=== PATIENT | male | born 1965 | race Caucasian/White ===

== ENCOUNTER 2018-12-21 10:09 | Inpatient (IN) | payer OTHER ==
--- NOTE | 2018-12-21 10:38 | PDOC ---
History of Present Illness - General Chief Complaint: Pain Stated Complaint: ABD PAIN Time Seen by Provider: 12/21/18 10:38 - History of Present Illness Initial Comments: 53 year old male with PMH of klinefelter syndrome, gastric sleeve (5.5 years prior), anemia and DVT ( 9 years prior never on AC ), who presents with left flank pain for the past two weeks. He was seen at [facility] ED one week prior where they discoverd a large 7mm left sided neprolith with moderate hydronpehrosis. Labs were normal and the patient was admitted for a day then discharged. Repeat CT results were pending. Patient returned today because the pain worsened yesterday and he felt as if it was more difficult to urinate. Does have nausea and vomiting. Denies fevers, chills, headache, chest pain, SOB , or other symptoms. 12/21/18 10:39 Past History - Past Medical History Allergies/Adverse Reactions: Allergies Allergy/AdvReac Type Severity Reaction Status Date / Time latex Allergy Rash Verified 04/28/15 10:32 aspirin AdvReac Verified 06/09/18 10:46 codeine AdvReac Vomiting Verified 06/09/18 10:46 naproxen AdvReac Vomiting Verified 12/21/18 10:31 oxycodone AdvReac Vomiting Verified 12/21/18 10:31 Home Medications: Ambulatory Orders Gabapentin 300 mg PO TID 06/09/18 Anemia: Yes Asthma: No Cancer: No Cardiac Disorders: No CVA: No COPD: No CHF: No DVT: Yes Dementia: No Diabetes: No GI Disorders: No Disorders: No HTN: No Hypercholesterolemia: No Liver Disease: No Seizures: No Thyroid Disease: No - Surgical History Abdominal Surgery: Yes (gastric bypass 04/26/14) Appendectomy: No Cardiac Surgery: No Cholecystectomy: No Lung Surgery: No Neurologic Surgery: No Orthopedic Surgery: Yes (neck sx, knee sx) - Suicide/Smoking/Psychosocial Hx Smoking History: Never smoked Have you smoked in the past 12 months: No Number of Cigarettes Smoked Daily: 0 Information on smoking cessation initiated: No Hx Alcohol Use: No Drug/Substance Use Hx: No Review of Systems - Review of Systems Constitutional: No: Chills, Diaphoresis, Fever, Loss of Appetite HEENTM: No: Tearing, Nose Pain Respiratory: No: Cough, Shortness of Breath Cardiac (ROS): No: Chest Pain, Edema, Irregular Heart Rate ABD/GI: Yes: Nausea, Vomiting. No: Diarrhea : Yes: Dysuria, Flank Pain, Pain, Urgency. No: Frequency, Hematuria Musculoskeletal: No: Joint Pain Neurological: No: Headache, Numbness, Paresthesia Psychiatric: No: Anxiety, Depression Hematologic/Lymphatic: Yes: Blood Clots. No: Anemia, Easy Bleeding *Physical Exam - Vital Signs Last Vital Signs Temp Pulse Resp BP Pulse Ox 98.2 F 47 L 16 161/80 100 12/21/18 10:22 12/21/18 10:22 12/21/18 10:22 12/21/18 10:22 12/21/18 10:22 - Physical Exam General Appearance: Yes: Nourished, Appropriately Dressed. No: Apparent Distress HEENT: positive: EOMI, RISSA, Normal ENT Inspection, Normal Voice Neck: positive: Trachea midline, Normal Thyroid, Supple. negative: Tender, Rigid Respiratory/Chest: positive: Lungs Clear, Normal Breath Sounds. negative: Chest Tender, Respiratory Distress Cardiovascular: positive: Regular Rhythm, Regular Rate Gastrointestinal/Abdominal: positive: Normal Bowel Sounds, Tender (f), Flat Lymphatic: negative: Adenopathy, Tenderness Musculoskeletal: positive: Normal Inspection. negative: CVA Tenderness Extremity: positive: Normal Capillary Refill, Normal Inspection, Normal Range of Motion. negative: Tender Integumentary: positive: Normal Color, Dry, Warm Neurologic: positive: Fully Oriented, Alert, Normal Mood/Affect, Normal Response , Motor Strength 5/5 ED Treatment Course - LABORATORY CBC & Chemistry Diagram: 12/21/18 11:15 12/21/18 11:15 Medical Decision Making - Medical Decision Making 53 year old male with known left [place] obstrucitng nephrolith with repeat CT scan demonstrating 7 mm stone ad left UVJ. Labs WNL and UA demosntrating hematuria. Spoke to Yumiko and will admit to Dr. briones's service. 12/21/18 16:14 *DC/Admit/Observation/Transfer Diagnosis at time of Disposition: Nephrolith - Discharge Dispostion Condition at time of disposition: Stable Decision to Admit order: Yes - Referrals - Patient Instructions - Post Discharge Activity
[2018-12-21] MEDS ORDERED: KETOROLAC TROMETHAMINE 15 MG/ML VIAL IVPUSH ONE (10:54)
[2018-12-21] MEDS ORDERED: KETOROLAC TROMETHAMINE 15 MG/ML VIAL ONE (11:02)
--- NOTE | 2018-12-21 11:03 | PDOC ---
Attending Attestation - Resident Resident Name: Chantell Daniels - ED Attending Attestation I have performed the following: I have examined & evaluated the patient, The case was reviewed & discussed with the resident, I agree w/resident's findings & plan, Exceptions are as noted - HPI HPI: 12/21/18 11:02 53yo M hx gastric bypass 2013, klienfelters syndrome, cervical spine surgery BIBEMS for L sided renal pain x 2 weeks. Pt was seen at the [facility] 1 [facility] ago where a CTAP showed that he had a kidney stone. He reports the pain improved upon discharge but last night started again. Feels like the sharp pain he had when he was diagnosed with the stone. He reports pain remains in the L flank, does not radiate, and rates it as a 10/10. Reports pain is a/w 1 episode of NBNB emesis, dark and decreased UOP. Denies fevers, chills, headache, CP, SOB , focal weakness/numbness. - Physicial Exam PE: 12/21/18 11:28 GENERAL: Awake, alert, and fully oriented, in no acute distress. Pleasant EYES: PERRLA, EOMI, sclera anicteric, conjunctiva clear ENT: Auricles normal inspection, hearing grossly normal, nares patent, oropharynx clear without exudates. Moist mucosa NECK: Normal ROM, supple, no lymphadenopathy, JVD, or masses LUNGS: Breath sounds equal, clear to auscultation bilaterally. No wheezes, and no crackles HEART: Regular rate and rhythm, normal S1 and S2, no murmurs, rubs or gallops ABDOMEN: Soft, nontender, normoactive bowel sounds. No guarding, no rebound. No masses : +L sided CVAT EXTREMITIES: Normal range of motion, no edema. No clubbing or cyanosis. No cords, erythema, or tenderness NEUROLOGICAL: Normal speech, cranial nerves intact, equal strength and sensation b/l SKIN: Warm, Dry, normal turgor, no rashes or lesions noted. Bedside sono with 300cc in bladder - pt with no urge to pee - Medical Decision Making 12/21/18 11:30 53yo M with recently diagnosed L sided kidney stone presents to the ED with recurrent L sided flank pain a/w N/V, dark urine, decreased urine output Concern for recurrent renal colic vs obstructing stone. DDx also includes UTI vs MSK pain vs aortic dissection Plan for labs, CTAP, UA/UCx, pain control, reassess. 12/21/18 13:[address] Sanders in the emergency department, he is evaluating pt 12/21/18 13:[address] Escudero, pt accepted for admission Case discussed in detail with admitting physician including history, physical exam and ancillary studies. Admitting physician has assumed care for the patient, will follow all pending diagnostics and will complete the evaluation and treatment.
[2018-12-21 11:44] LABS: BASO % 0.9 % (0-2.0); HEMATOCRIT 40.1 % (35.4-49); HEMOGLOBIN 13.7 GM/dL (11.7-16.9); LYMPH % 15.2 % (8-40); MCHC 34.2 g/dl (32.0-35.9); MEAN CELL VOLUME 87.7 fl (80-96); MEAN PLT VOLUME 7.9 fl (7.5-11.1); MONO % 3.2 % (3.8-10.2); NEUT % 79.7 % (42.8-82.8); PLATELET COUNT 269 K/MM3 (134-434); RBC 4.57 M/mm3 (4.00-5.60); RDW 13.9 % (11.9-15.9); WHITE BLOOD COUNT 7.6 K/mm3 (4.0-10.0)
[2018-12-21 11:55] LABS: INR 1.23 (0.83-1.09); PROTHROMBIN TIME (PATIENT) 14.6 SEC (9.7-13.0)
[2018-12-21 12:03] LABS: ALBUMIN 4.2 g/dl (3.4-5.0); BILIRUBIN,TOTAL 0.5 mg/dL (0.2-1); BLOOD UREA NITROGEN 8.8 mg/dL (7-18); CALCIUM 9.9 mg/dL (8.5-10.1); CREATININE 1.1 mg/dL (0.55-1.3); TOT PROT 7.7 g/dl (6.4-8.2)
[2018-12-21 12:14] LABS: EPI CELLS 1.4 /HPF (0-5/HPF); HYALINE CASTS 3 /lpf (0-8); PH,URINE 7.5 (5.0-8.0); URINE APPEARANCE CLEAR; URINE BACTERIA 0.7 /hpf (NEGATIVE); URINE BILIRUBIN NEGATIVE (NEGATIVE); URINE COLOR YELLOW; URINE GLUCOSE (UA) NEGATIVE (NEGATIVE); URINE KETONE NEGATIVE (NEGATIVE); URINE LEUK ESTERASE TRACE (NEGATIVE); URINE NITRITE NEGATIVE (NEGATIVE); URINE PROTEIN NEGATIVE (NEGATIVE); URINE RBC 253 /hpf (0-4); URINE UROBILINOGEN 0.2 mg/dL (0.2-1.0); URINE WBC 6 /hpf (0-5)
[2018-12-21 13:05] LABS: URINE CRYSTALS NONE SEEN /hpf
--- NOTE | 2018-12-21 13:49 | CON.GU ---
Consult Consult Specialty:: Urology Referred by:: Dr Gil Reason for Consultation:: Left renal colic - History of Present Illness Chief Complaint: flank pain History of Present Illness: 53 yo male w prior hx of renal calc recently seen in [facility] found to have mult renal calculi some of which passed. Pt now w nausea vomiting and left flank pain. No fevers Also c/o slow urine flow - Past Medical History Additional Medical History: Gastric bypass - Alcohol/Substance Use Hx Alcohol Use: No - Smoking History Smoking history: Never smoked Have you smoked in the past 12 months: No Aproximately how many cigarettes per day: 0 Home Medications - Allergies Allergies/Adverse Reactions: Allergies Allergy/AdvReac Type Severity Reaction Status Date / Time latex Allergy Rash Verified 04/28/15 10:32 aspirin AdvReac Verified 06/09/18 10:46 codeine AdvReac Vomiting Verified 06/09/18 10:46 naproxen AdvReac Vomiting Verified 12/21/18 10:31 oxycodone AdvReac Vomiting Verified 12/21/18 10:31 - Home Medications Home Medications: Ambulatory Orders Gabapentin 300 mg PO TID 06/09/18 Review of Systems - Review of Systems Genitourinary: reports: Flank Pain (slow flow), Pain Physical Exam- Vital Signs: Vital Signs Temperature 98.2 F 12/21/18 10:22 Pulse Rate 47 L 12/21/18 10:22 Respiratory Rate 16 12/21/18 10:22 Blood Pressure 161/80 12/21/18 10:22 O2 Sat by Pulse Oximetry (%) 100 12/21/18 10:22 Labs: CBC, BMP 12/21/18 11:15 12/21/18 11:15 Imaging - Results Cat Scan: Report Reviewed Problem List - Problems (1) Renal colic on left side Assessment/Plan: 53 yo male w left 7 mm UVJ stone Analgesics hydration Strain urine Discussed possible ESWL vs ureteroscopy and stent if pt does not pass stone. will follow Code(s): N23 - UNSPECIFIED RENAL COLIC
[2018-12-21 15:38] VITALS: BMI 23.1
[2018-12-21] MEDS ORDERED: KETOROLAC TROMETHAMINE 30 MG/1 ML VIAL IVPUSH PRN (15:54)
[2018-12-21] MEDS: DEXTROSE 5%-0.45% SALINE 1,000 ML IV SCH (16:56)
[2018-12-21] MEDS: GABAPENTIN 300 MG CAPSULE (FP) PO SCH ×2 (16:56→22:13)
[2018-12-21] MEDS: TAMSULOSIN HCL 0.4 MG CAP PO SCH (16:56)
[2018-12-21] MEDS: HEPARIN NA (PORCINE) 5,000 UNITS/ML 1ML VIAL SQ SCH (22:13)
--- NOTE | 2018-12-21 23:23 | HP ---
Admitting History and Physical - Admission History of Present Illness: Pt is a 53 y/o male with PMH significant for klinefelter syndrome, gastric sleeve (5.5 years prior), anemia and DVT ( 9 years prior never on AC ) and nephrolithiasis, who presents with left flank pain for the past two weeks. He was seen at [facility] ED one week prior where they discoverd a large 7mm left sided neprolith with moderate hydronpehrosis. Labs were normal and the patient was admitted for a day then discharged. Patient presented to the ER because the pain worsened yesterday and he felt as if it was more difficult to urinate. Pt also complains of nausea and vomiting(1 episode). Denies fevers, chills, headache, chest pain, SOB, or other symptoms. - Past Medical History Heme/Onc: Yes: Anemia, Other (DVT) Musculoskeletal: Yes: Other (Klinefelter syndrome) - Past Surgical History Additional Past Surgical History: Gastric sleeve - Advance Directives Advance Directives: Yes: Health Care Proxy - Smoking History Smoking history: Never smoked Have you smoked in the past 12 months: No Aproximately how many cigarettes per day: 0 - Alcohol/Substance Use Hx Alcohol Use: No Home Medications - Allergies Allergies/Adverse Reactions: Allergies Allergy/AdvReac Type Severity Reaction Status Date / Time latex Allergy Rash Verified 04/28/15 10:32 aspirin AdvReac Verified 06/09/18 10:46 codeine AdvReac Vomiting Verified 06/09/18 10:46 naproxen AdvReac Vomiting Verified 12/21/18 10:31 oxycodone AdvReac Vomiting Verified 12/21/18 10:31 - Home Medications Home Medications: Ambulatory Orders Gabapentin 300 mg PO TID 06/09/18 Family Disease History - Family Disease History Family History: Unremarkable Review of Systems - Review of Systems Constitutional: reports: Loss of Appetite, Weakness Eyes: reports: No Symptoms HENT: reports: No Symptoms Neck: reports: No Symptoms Cardiovascular: reports: No Symptoms Respiratory: reports: No Symptoms Gastrointestinal: reports: Abdominal Pain, Nausea, Vomiting Physical Examination Vital Signs: Vital Signs Temperature 98.3 F 12/21/18 17:57 Pulse Rate 49 L 12/21/18 17:57 Respiratory Rate 20 12/21/18 17:57 Blood Pressure 108/54 L 12/21/18 17:57 O2 Sat by Pulse Oximetry (%) 97 12/21/18 15:38 Constitutional: Yes: No Distress Eyes: Yes: WNL HENT: Yes: WNL Neck: Yes: WNL, Supple Cardiovascular: Yes: WNL, Regular Rate and Rhythm Respiratory: Yes: WNL, Regular, CTA Bilaterally Gastrointestinal: Yes: Normal Bowel Sounds, Soft, Other ((+) tenderness LLQ) Musculoskeletal: Yes: WNL Extremities: Yes: WNL Edema: No Neurological: Yes: WNL, Alert, Oriented ...Motor Strength: WNL Labs: CBC, BMP 12/21/18 11:15 12/21/18 11:15 Problem List - Problems (1) Abdominal pain Assessment/Plan: Ct scan abd showed 7 mm LT UVJ calculus w/ hydronephrosis As per uro possible ESWL vs ureteroscopy/stent if stone not passed Cont IV hydration Cont flomax Follow urine culture Code(s): R10.9 - UNSPECIFIED ABDOMINAL PAIN (2) Anemia Assessment/Plan: H/H stable Code(s): D64.9 - ANEMIA, UNSPECIFIED
[2018-12-21] MEDS: traMADol HCL 50 MG TABLET PO PRN (23:34)
[2018-12-22] MEDS ORDERED: traMADol HCL 50 MG TABLET PO ONE (02:00)
[2018-12-22] MEDS: GABAPENTIN 300 MG CAPSULE (FP) PO SCH ×3 (05:09→21:38)
[2018-12-22 08:56] LABS: BASO % 0.8 % (0-2.0); EOS % 2.6 % (0-4.5); HEMATOCRIT 33.2 % (35.4-49); HEMOGLOBIN 11.2 GM/dL (11.7-16.9); LYMPH % 33.9 % (8-40); MCH 29.9 pg (25.7-33.7); MCHC 33.8 g/dl (32.0-35.9); MEAN CELL VOLUME 88.3 fl (80-96); MEAN PLT VOLUME 8.2 fl (7.5-11.1); MONO % 6.8 % (3.8-10.2); NEUT % 55.9 % (42.8-82.8); PLATELET COUNT 234 K/MM3 (134-434); RBC 3.76 M/mm3 (4.00-5.60); RDW 13.8 % (11.9-15.9); WHITE BLOOD COUNT 7.1 K/mm3 (4.0-10.0)
[2018-12-22 09:36] LABS: ALBUMIN 3.4 g/dl (3.4-5.0); BILIRUBIN,TOTAL 0.5 mg/dL (0.2-1); BLOOD UREA NITROGEN 13.5 mg/dL (7-18); CALCIUM 9.1 mg/dL (8.5-10.1); CREATININE 1.1 mg/dL (0.55-1.3); POTASSIUM 3.9 mmol/L (3.5-5.1); TOT PROT 6.1 g/dl (6.4-8.2)
[2018-12-22] MEDS: TAMSULOSIN HCL 0.4 MG CAP PO SCH (09:43)
[2018-12-22] MEDS: traMADol HCL 50 MG TABLET PO PRN ×2 (09:43→16:20)
[2018-12-22] MEDS: HEPARIN NA (PORCINE) 5,000 UNITS/ML 1ML VIAL SQ SCH ×3 (09:44→21:38)
[2018-12-22] MEDS: DEXTROSE 5%-0.45% SALINE 1,000 ML IV SCH ×2 (09:51→16:20)
--- NOTE | 2018-12-22 14:06 | EKG ---
Test Reason : Blood Pressure : / mmHG Vent. Rate : 033 BPM Atrial Rate : 033 BPM P-R Int : 134 ms QRS Dur : 086 ms QT Int : 478 ms P-R-T Axes : 037 014 024 degrees QTc Int : 353 ms MARKED SINUS BRADYCARDIA ABNORMAL ECG NO PREVIOUS ECGS AVAILABLE Confirmed by BRI HAMMONDS MD ([id number]) on 12/22/2018 2:05:40 PM Referred By: Aaliyah SALAS Confirmed By:BRI HAMMONDS MD
--- NOTE | 2018-12-23 00:01 | PN ---
Progress Note, Physician History of Present Illness: Pt seen and examined on 12/22/18 however due to computer issues note is being entered now - Current Medication List Current Medications: Active Medications Gabapentin (Neurontin -) 300 mg PO TID [facility] Last Admin: 12/22/18 21:38 Dose: 300 mg Heparin Sodium (Porcine) (Heparin -) 5,000 unit SQ BID [facility] Last Admin: 12/22/18 21:38 Dose: 5,000 unit Dextrose/Sodium Chloride (D5-1/2ns -) 1,000 mls @ 75 mls/hr IV ASDIR [facility] Last Admin: 12/22/18 16:20 Dose: Not Given Tamsulosin HCl (Flomax -) 0.4 mg PO DAILY@0830 [facility] Last Admin: 12/22/18 09:43 Dose: 0.4 mg Tramadol HCl (Ultram -) 50 mg PO Q6H PRN PRN Reason: PAIN LEVEL 4-10 Last Admin: 12/22/18 16:20 Dose: 50 mg - Objective Vital Signs: Vital Signs Temperature 98.8 F 12/22/18 22:00 Pulse Rate 47 L 12/22/18 22:00 Respiratory Rate 12/22/18 22:00 Blood Pressure 97/58 L 12/22/18 22:00 O2 Sat by Pulse Oximetry (%) 97 12/22/18 09:00 HENT: Yes: WNL Neck: Yes: WNL, Supple, Trachea Midline Cardiovascular: Yes: WNL, Regular Rate and Rhythm Respiratory: Yes: WNL, Regular, CTA Bilaterally Gastrointestinal: Yes: WNL, Normal Bowel Sounds, Soft Edema: No Labs: CBC, BMP 12/22/18 07:35 12/22/18 07:45 INR, PTT INR 1.23 (0.83-1.09) H 12/21/18 11:15 Problem List - Problems (1) Abdominal pain Assessment/Plan: Ct scan abd showed 7 mm LT UVJ calculus w/ hydronephrosis As per uro possible ESWL vs ureteroscopy/stent if stone not passed Cont IV hydration Cont flomax Follow urine culture Code(s): R10.9 - UNSPECIFIED ABDOMINAL PAIN (2) Anemia Assessment/Plan: H/H stable Code(s): D64.9 - ANEMIA, UNSPECIFIED
[2018-12-23] MEDS: GABAPENTIN 300 MG CAPSULE (FP) PO SCH ×3 (05:57→21:25)
[2018-12-23 08:12] LABS: BASO % 0.7 % (0-2.0); EOS % 3.4 % (0-4.5); HEMATOCRIT 31.3 % (35.4-49); HEMOGLOBIN 10.7 GM/dL (11.7-16.9); LYMPH % 34.5 % (8-40); MCH 30.2 pg (25.7-33.7); MCHC 34.1 g/dl (32.0-35.9); MEAN CELL VOLUME 88.4 fl (80-96); MEAN PLT VOLUME 8.4 fl (7.5-11.1); MONO % 10.2 % (3.8-10.2); NEUT % 51.2 % (42.8-82.8); PLATELET COUNT 209 K/MM3 (134-434); RBC 3.54 M/mm3 (4.00-5.60); RDW 13.5 % (11.9-15.9); WHITE BLOOD COUNT 6.4 K/mm3 (4.0-10.0)
[2018-12-23 08:30] LABS: BILIRUBIN,TOTAL 0.4 mg/dL (0.2-1); BLOOD UREA NITROGEN 11.1 mg/dL (7-18); CALCIUM 8.6 mg/dL (8.5-10.1); CREATININE 1.6 mg/dL (0.55-1.3); POTASSIUM 4.1 mmol/L (3.5-5.1); TOT PROT 5.8 g/dl (6.4-8.2)
[2018-12-23] MEDS: TAMSULOSIN HCL 0.4 MG CAP PO SCH (08:36)
[2018-12-23] MEDS: HEPARIN NA (PORCINE) 5,000 UNITS/ML 1ML VIAL SQ SCH ×2 (09:31→21:25)
[2018-12-23] MEDS: DEXTROSE 5%-0.45% SALINE 1,000 ML IV SCH (13:19)
--- NOTE | 2018-12-23 22:18 | PN ---
Progress Note, Physician History of Present Illness: Morgan was placed late last pm due to urinary retention - Current Medication List Current Medications: Active Medications Gabapentin (Neurontin -) 300 mg PO TID [facility] Last Admin: 12/23/18 21:25 Dose: 300 mg Heparin Sodium (Porcine) (Heparin -) 5,000 unit SQ BID [facility] Last Admin: 12/23/18 21:25 Dose: 5,000 unit Dextrose/Sodium Chloride (D5-1/2ns -) 1,000 mls @ 75 mls/hr IV ASDIR [facility] Last Admin: 12/23/18 13:19 Dose: 75 mls/hr Tamsulosin HCl (Flomax -) 0.4 mg PO DAILY@0830 [facility] Last Admin: 12/23/18 08:36 Dose: 0.4 mg Tramadol HCl (Ultram -) 50 mg PO Q6H PRN PRN Reason: PAIN LEVEL 4-10 Last Admin: 12/22/18 16:20 Dose: 50 mg - Objective Vital Signs: Vital Signs Temperature 98.6 F 12/23/18 14:00 Pulse Rate 71 12/23/18 14:00 Respiratory Rate 20 12/23/18 14:00 Blood Pressure 120/66 12/23/18 14:00 O2 Sat by Pulse Oximetry (%) 97 12/23/18 09:00 Constitutional: Yes: No Distress Neck: Yes: WNL, Supple Cardiovascular: Yes: WNL, Regular Rate and Rhythm Respiratory: Yes: WNL, Regular, CTA Bilaterally Gastrointestinal: Yes: WNL, Normal Bowel Sounds, Soft Extremities: Yes: WNL Edema: No Labs: CBC, BMP 12/23/18 07:00 12/23/18 07:00 INR, PTT INR 1.23 (0.83-1.09) H 12/21/18 11:15 Problem List - Problems (1) Abdominal pain Assessment/Plan: Ct scan abd showed 7 mm LT UVJ calculus w/ hydronephrosis As per uro possible ESWL vs ureteroscopy/stent if stone not passed Cont IV hydration Cont flomax Follow urine culture Cont Morgan cath Code(s): R10.9 - UNSPECIFIED ABDOMINAL PAIN (2) Anemia Assessment/Plan: H/H stable Code(s): D64.9 - ANEMIA, UNSPECIFIED
[2018-12-24] MEDS: DEXTROSE 5%-0.45% SALINE 1,000 ML IV SCH ×2 (03:44→15:44)
[2018-12-24] MEDS: GABAPENTIN 300 MG CAPSULE (FP) PO SCH ×3 (06:08→21:05)
[2018-12-24] MEDS: TAMSULOSIN HCL 0.4 MG CAP PO SCH (08:23)
[2018-12-24 08:52] LABS: BASO % 0.8 % (0-2.0); EOS % 4.1 % (0-4.5); HEMATOCRIT 32.6 % (35.4-49); HEMOGLOBIN 11.1 GM/dL (11.7-16.9); LYMPH % 29.3 % (8-40); MCH 29.7 pg (25.7-33.7); MCHC 33.9 g/dl (32.0-35.9); MEAN CELL VOLUME 87.6 fl (80-96); MEAN PLT VOLUME 8.5 fl (7.5-11.1); MONO % 8.9 % (3.8-10.2); NEUT % 56.9 % (42.8-82.8); PLATELET COUNT 212 K/MM3 (134-434); RBC 3.72 M/mm3 (4.00-5.60); RDW 13.7 % (11.9-15.9); WHITE BLOOD COUNT 5.6 K/mm3 (4.0-10.0)
[2018-12-24 09:13] LABS: ALBUMIN 2.8 g/dl (3.4-5.0); BILIRUBIN,TOTAL 0.5 mg/dL (0.2-1); BLOOD UREA NITROGEN 8.8 mg/dL (7-18); CALCIUM 8.8 mg/dL (8.5-10.1); CREATININE 1.5 mg/dL (0.55-1.3); POTASSIUM 4.4 mmol/L (3.5-5.1); TOT PROT 5.6 g/dl (6.4-8.2)
[2018-12-24] MEDS: HEPARIN NA (PORCINE) 5,000 UNITS/ML 1ML VIAL SQ SCH ×2 (09:21→21:05)
[2018-12-24] MEDS: traMADol HCL 50 MG TABLET PO PRN (09:28)
--- NOTE | 2018-12-24 16:35 | PN ---
Progress Note (short form) - Note Progress Note: pts renal colic has resolved he feels better since garcia was placed Problem List - Problems (1) Urinary retention Assessment/Plan: trial of void in morning. Code(s): R33.9 - RETENTION OF URINE, UNSPECIFIED (2) Nephrolithiasis Assessment/Plan: can discharge and follow up as outpatient Code(s): N20.0 - CALCULUS OF KIDNEY
--- NOTE | 2018-12-24 23:03 | PN ---
Progress Note, Physician History of Present Illness: No further abdominal pains - Current Medication List Current Medications: Active Medications Gabapentin (Neurontin -) 300 mg PO TID [facility] Last Admin: 12/24/18 21:05 Dose: 300 mg Heparin Sodium (Porcine) (Heparin -) 5,000 unit SQ BID [facility] Last Admin: 12/24/18 21:05 Dose: 5,000 unit Dextrose/Sodium Chloride (D5-1/2ns -) 1,000 mls @ 75 mls/hr IV ASDIR [facility] Last Admin: 12/24/18 15:44 Dose: 75 mls/hr Tamsulosin HCl (Flomax -) 0.4 mg PO DAILY@0830 [facility] Last Admin: 12/24/18 08:23 Dose: 0.4 mg Tramadol HCl (Ultram -) 50 mg PO Q6H PRN PRN Reason: PAIN LEVEL 4-10 Last Admin: 12/24/18 09:28 Dose: 50 mg - Objective Vital Signs: Vital Signs Temperature 98.3 F 12/24/18 07:32 Pulse Rate 58 L 12/24/18 07:32 Respiratory Rate 14 12/24/18 07:32 Blood Pressure 130/62 12/24/18 07:32 O2 Sat by Pulse Oximetry (%) 97 12/24/18 22:00 Neck: Yes: WNL, Supple Cardiovascular: Yes: WNL, Regular Rate and Rhythm Respiratory: Yes: WNL, Regular, CTA Bilaterally Gastrointestinal: Yes: WNL, Normal Bowel Sounds, Soft Edema: No Labs: CBC, BMP 12/24/18 07:50 12/24/18 07:50 INR, PTT INR 1.23 (0.83-1.09) H 12/21/18 11:15 Problem List - Problems (1) Abdominal pain Assessment/Plan: Ct scan abd showed 7 mm LT UVJ calculus w/ hydronephrosis Cont flomax Will dc garcia in am Possible dc planning after voiding trial Urine culture remains negative Code(s): R10.9 - UNSPECIFIED ABDOMINAL PAIN (2) Anemia Assessment/Plan: H/H stable Code(s): D64.9 - ANEMIA, UNSPECIFIED
[2018-12-25] MEDS: DEXTROSE 5%-0.45% SALINE 1,000 ML IV SCH (00:57)
[2018-12-25] MEDS: GABAPENTIN 300 MG CAPSULE (FP) PO SCH (05:51)
[2018-12-25] MEDS: TAMSULOSIN HCL 0.4 MG CAP PO SCH (09:34)
[2018-12-25] MEDS: HEPARIN NA (PORCINE) 5,000 UNITS/ML 1ML VIAL SQ SCH (09:55)
[2018-12-25 10:36] VITALS: BP 121/64; PULSE 67; TEMP 98
== END 2018-12-25 13:23 | disposition home or self-care (01) | DRG 694 ==
LOC: JER 10:09 → JERBED 13:03 → J6S 15:09
PROVIDERS: ADMIT Internal Medicine; ATTEND Internal Medicine
DX: N13.2 Hydronephrosis with renal and ureteral calculous obstruction (principal); Q98.4 Klinefelter syndrome, unspecified; D64.9 Anemia, unspecified; R31.9 Hematuria, unspecified; R33.9 Retention of urine, unspecified
CPT/HCPCS: 36415; 74176-TC; 80053; 81003; 82150; 83690; 85025; 85610; 87086; 93005; 93010; 99282-25; J1644